=== PATIENT | male | born 2000 | race Caucasian/White ===

== ENCOUNTER 2023-10-27 14:06 | Emergency (ER) | payer OTHER, MEDICAID, SELFPAY ==
[2023-10-27 14:21] VITALS: BP 136/84; PULSE 67; RESP 20; TEMP 36.9; O2SAT 100
--- NOTE | 2023-10-27 14:21 | ED.EYEPROB ---
HPI - Eye Problem General Chief complaint: Eye Problems Stated complaint: right eye injury Time Seen by Provider: 10/27/23 14:25 Source: patient, RN notes reviewed and old records reviewed Mode of arrival: ambulatory Limitations: no limitations History of Present Illness HPI Narrative: 23 year old male who presents to [facility] with complaints of foreign body sensation to his right eye since about 0930 this morning. 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 Patient denies any change in his vision reports irritation and redness to his right eye with feeling like something is in his eye ,excessive tearing,has cool compress to his right eye. Patient reports that he irrigated his eye after incident happened MD chief complaint: eye redness Onset (ago): hour(s) (0930) Location: right eye Eye Symptoms: burning, redness, foreign body sensation and other (tearing) Place: work and street/outdoors Treatments Prior to Arrival: irrigated eye Related Data Allergies Allergy/AdvReac Type Severity Reaction Status Date / Time No Known Allergies Allergy Verified 10/27/23 14:26 Review of Systems Review of Systems: CONSTITUTIONAL: Denies fever, chills, or sweats. EYES: Denies visual changes. Reports redness,, irritation,no discharge increase tearing with foreign body sensation ENT: Denies rhinorrhea, congestion, sore throat, or otalgia. CARDIOVASCULAR: Denies chest pain, palpitations, or edema. RESPIRATORY: Denies cough or dyspnea. SKIN: Denies rash or itching. NEUROLOGIC: Denies headache All systems reviewed & are unremarkable except as noted in HPI and below PMFSH Comments At time of signature, agree with nursing past medical, surgical, social and family history. There is no relevant family history pertinent to the presenting complaint Exam Narrative: GENERAL: Well-appearing, well-nourished, and in no acute distress. HEAD: Normocephalic, atraumatic. EYES: PERRLA and EOMI. Upper and lower eyelids unremarkable. No periorbital cellulitis noted. Sclera reddened right eye with feeling of foreign body no visual changes,positive burning, redness, and tearing ENT: Nares clear, no rhinorrhea or epistaxis. Mucous membranes moist. NECK: Supple.n lymphadenopathy CHEST: Clear to auscultation. No respiratory distress. HEART: Regular rate and rhythm. No murmur heard. Normal peripheral pulses. SKIN: Warm, dry, no rash. NEURO: No focal deficits. Alert and oriented x3. Course Course Emergency Course: Patient is aware of diagnosis, understands and agrees to treatment plan. Anticipatory guidance given. Patient agrees to follow-up as directed and is aware of reasons to seek care at the emergency department. Portions of this record may have been created with voice recognition software Level of Care: Express Care Visit Vital Signs Vital signs: Vital Signs Temperature 36.9 C 10/27/23 14:21 Pulse Rate 67 10/27/23 14:21 Respiratory Rate 20 10/27/23 14:21 Blood Pressure 136/84 10/27/23 14:21 Pulse Oximetry 100 10/27/23 14:21 Oxygen Delivery Room Air 10/27/23 14:21 Temperature 36.9 C 10/27/23 14:21 Pulse Rate 67 10/27/23 14:21 Respiratory Rate 20 10/27/23 14:21 Blood Pressure 136/84 10/27/23 14:21 Pulse Oximetry 100 10/27/23 14:21 Oxygen Delivery Room Air 10/27/23 14:21 Reviewed Procedures FB Removal Eye Foreign Body #1: Foreign Body Removal Date: 10/27/23 Foreign Body Removal Time: 14:28 Time Out performed: Yes Location: eye (R) Topical anesthetic used: tetracaine (0.5% 2 drops) Foreign body: other (none noted) Evidence of corneal penetration: No Technique: irrigation, eye wash bottle and cotton tip swab Procedure performed under: direct visualization with magnificatio
[2023-10-27] MEDS: DACRIOSE EYE IRRIGATION 118 ML BOTTLE 25 ML RIGHT EYE (14:30)
[2023-10-27] MEDS: TETRACAINE HCL 0.5% OPHTH SOLN 4 ML BTL 1 DROP EACH EYE (14:30)
[2023-10-27] MEDS: FLUORESCEIN SOD 1 MG/STRIP EACH EYE (14:30)
== END 2023-10-27 14:50 | disposition home or self-care (01) ==
PROVIDERS: Emergency Provider Registered Nurse
DX: S05.01XA Injury of conjunctiva and corneal abrasion without foreign body, right eye, initial encounter (principal); X58.XXXA Exposure to other specified factors, initial encounter; Y99.0 Civilian activity done for income or pay
CPT/HCPCS: 99213; A9270; G0463